=== PATIENT | female | born 1975 | race African-American/Black ===

== ENCOUNTER 2023-09-16 07:47 | Outpatient (CLI) | payer SELFPAY | END 2023-09-16 23:59 | disposition short-term general hospital (02) | LOC: EMS 07:47 | DX: S99.912A Unspecified injury of left ankle, initial encounter (principal); W17.81XA Fall down embankment (hill), initial encounter; Y93.K1 Activity, walking an animal; Y92.830 Public park as the place of occurrence of the external cause | CPT/HCPCS: A0425; A0429 ==